=== PATIENT | female | born 1990 | race African-American/Black ===

== ENCOUNTER 2022-01-02 15:40 | Emergency (ER) | payer MEDICAID ==
[~2022-01-02] VITALS: Ht 157.5 cm; Wt 104.0 kg
[2022-01-02 15:53] VITALS: BP 163/99
[2022-01-02] MEDS ORDERED: ACETAMINOPHEN 325MG TABLET PO STA (18:40)
[2022-01-02] MEDS ORDERED: SODIUM CHLORIDE 0.9% 1,000 ML IV ONE (18:45)
[2022-01-02 19:46] LABS: HEMATOCRIT. 37.2 % (36.0-48.0); HEMOGLOBIN. 12.3 g/dL (12.0-16.0); MEAN CORPUSCULAR HEMOGLOBIN 26.9 pg (28.0-32.0); MEAN CORPUSCULAR VOLUME 81.2 fL (81.0-99.0); MEAN PLATELET VOLUME 8.2 fl (7.4-10.4); PLATELET 265 x1000/uL (130-400); RED BLOOD CELL COUNT 4.58 mill/uL (4.2-5.4); RED CELL DISTRIBUTION WIDTH 15.3 % (11.6-14.6)
[2022-01-02 19:48] LABS: CHLORIDE 107 mEq/L (98-107)
[2022-01-02 20:19] LABS: PLATELET ESTIMATE NORMAL
== END 2022-01-02 21:39 | disposition home or self-care (01) ==
LOC: ER 15:40
DX: U07.1 COVID-19 (principal); R00.0 Tachycardia, unspecified; J45.909 Unspecified asthma, uncomplicated; Z98.890 Other specified postprocedural states
CPT/HCPCS: 36415; 80053; 84484; 85025; 93005; 96360; 99284; J7030